=== PATIENT | female | born 1975 | race Caucasian/White ===

== ENCOUNTER 2024-07-19 23:11 | Emergency (ER) | payer OTHER, SELFPAY ==
[2024-07-19 23:14] VITALS: BP 133/84
--- NOTE | 2024-07-20 00:50 | ED.GENMED ---
History of Present Illness
General
Chief Complaint: Skin Surface Trauma
Time Seen by Provider: 07/20/24 00:09
History of Present Illness
History of Present Illness:
48-year-old female without significant past medical history presenting for laceration to right third digit. Patient reports she was washing dishes and did not realize that the dish in the sink was broken and cut the distal tip of her finger on the
dish. She had difficulty controlling the bleeding which prompted her to come to the hospital. Tetanus status is unknown. Denies numbness or tingling. Denies issues with range of motion. Denies additional acute medical complaints
Past History
Past History
ED Past Medical History: None
ED Past Surgical History: None
Social History
Tobacco: Non-smoker
Phy Exam
Physical Exam
Physical Exam:
General: Well-appearing, no clinical signs of dehydration, nontoxic and in no acute distress
HEENT: protecting airway
Neck: appears supple
CV: Normal heart rate
Resp: No accessory muscle use, no increased work of breathing
Abd: no distension
Extremities: No deformities, no swelling. Flap laceration to the distal portion of the right third digit on the palmar aspect. Bleeding controlled. Sensation intact
Neuro: alert, no focal neurologic deficit
: deferred
Rectal: deferred
Psych: Normal affect
Skin: Intact
Course
Orders/Labs/Results
Orders:
Orders
07/20/24 00:49
Tetanus/Diphth/Acelpertussis [Adacel] 0.5 ml IM .ONCE ONE
Vital Signs
Initial and Last Documented VS:
Initial Vital Signs
Temp Pulse Resp BP Pulse Ox
98.2 F 87 18 133/84 98
07/19/24 23:14 07/19/24 23:14 07/19/24 23:14 07/19/24 23:14 07/19/24 23:14
Last Documented Vital Signs
Temp Pulse Resp BP Pulse Ox
98.2 F 87 18 133/84 98
07/19/24 23:14 07/19/24 23:14 07/19/24 23:14 07/19/24 23:14 07/19/24 23:14
Procedures
Laceration Closure
Right Distal Palmar Third Finger(s):
Status of Wound: clean
Size of Wound in cm: 2
Description of Wound Edges: flap-well vascularized
Preparation: cleaned with saline
Anesthesia: 1% Lidocaine
Type of Closure: single layer closure
Skin Closure Material: 4-0 prolene
Number of sutures: 5
MDM/Problems Addressed
MDM/Problems Addressed:
48-year-old female presenting with laceration to right third digit after cutting her finger on a plate. Vital signs normal.
On exam patient well-appearing, no acute distress. Patient with subcutaneous laceration to the distal aspect of the right third digit on the palmar side. Bleeding controlled. No signs of infection. No neurovascular compromise. Wound was cleaned
and repaired with sutures. Please see procedure note. Will update tetanus. Otherwise feel stable for discharge. Return precautions discussed and patient verbalized understanding
*Critical Care Note
Total Time (30-74mins, 75-104mins- exclusive of procedures): Not Applicable
ED Attending Note
-
Portions of this chart may have been created with voice recognition software.� Occasional wrong word or��sound alike� substitutions may have occurred due to the inherent limitations of voice recognition software.
Discharge Plan
Departure
Patient Disposition: Home (Routine Discharge)
Date of Disposition: 07/20/24
Time of Disposition: 00:53
Patient with high blood pressure during this ER visit?: No
Condition: Good
Discharge Problem:
Laceration of finger of right hand
Instructions: Laceration Repair With Stitches (DC)
Prescriptions:
No Action
ketorolac 10 MG tablet
10 mg PO Q6HPRN PRN (Reason: Pain) Qty: 10 0RF
Referrals:
Stepan Meehan, [Family Provider] -
Activity Restrictions/Additional Instructions:
You were seen in the emergency department for laceration
Your finger was repaired with sutures. The sutures will need to come out in 5 to 7 days.
Please follow-up closely with your primary care physician.
Return to the emergency department for any swelling or redness to your finger with any abnormal drainage of fluid, or any development of chest pain, difficulty breathing, abdominal pain with persistent vomiting and inability to tolerate food or
liquid by mouth (concern for dehydration), weakness, headache or confusion, fever greater than 100.4, or any additional symptoms that are concerning to you.
Thank you for choosing [facility].
Interventions
Interventions:
*Risk Screen - Suicide Last Done: 07/19/24 23:12
*Neglect/Abuse Screening Last Done: 07/19/24 23:17
*ED COVID-19 Vaccine History Last Done: 07/19/24 23:17
Discharge Date and Time
Print Language: DANISH
[2024-07-20] MEDS: ADACEL 0.5 ML IM (01:03)
== END 2024-07-20 01:09 | disposition home or self-care (01) ==
LOC: EMR 23:11
PROVIDERS: EMERGENCY PHYSICIAN Student in an Organized Health Care Education/Training Program; FAMILY PHYSICIAN Family Medicine
DX: S61.212A Laceration without foreign body of right middle finger without damage to nail, initial encounter (principal); W26.8XXA Contact with other sharp object(s), not elsewhere classified, initial encounter; Y93.G1 Activity, food preparation and clean up; Z23 Encounter for immunization
CPT/HCPCS: 99282; 12001; 90471; 90715

== ENCOUNTER → 2024-09-29 13:34 | Outpatient (REF) | payer OTHER, SELFPAY | LOC: HWRAD 13:34 | PROVIDERS: ATTENDING PHYSICIAN Internal Medicine | DX: M25.512 Pain in left shoulder (principal) | CPT/HCPCS: 73030 ==

== ENCOUNTER → 2024-11-04 07:55 | Outpatient (REF) | payer OTHER, SELFPAY | LOC: MRI 3T 07:55 | PROVIDERS: ATTENDING PHYSICIAN Family Medicine | DX: M25.512 Pain in left shoulder (principal) | CPT/HCPCS: 73221 ==

== ENCOUNTER 2024-12-15 12:47 | Emergency (ER) | payer OTHER, SELFPAY ==
[2024-12-15 13:07] LABS: % Basophils 0.7 % (0-2); % Eosinophils 1.3 % (0-6); % Immature Granulocytes 0.3 % (0-0.5); % Lymphocytes 13.2 % (20.5-51.1); % Monocytes 5.2 % (1.7-9.3); % Neutrophils 79.3 % (42.2-75.2); Absolute Basophils 0.1 10^3/uL (0-0.2); Absolute Eosinophils 0.1 10^3/uL (0-0.7); Absolute Lymphocytes 1.3 10^3/uL (1.2-3.4); Absolute Monocytes 0.5 10^3/uL (0.1-0.6); Absolute Neutrophils 7.5 10^3/uL (1.4-6.5); Hematocrit 40.1 % (37.0-47.0); Hemoglobin 13.6 g/dL (12.0-16.0); Mean Corp Hgb Conc. 33.9 g/dL (33.0-37.0); Mean Corpuscular Hgb 30.4 pg (27.0-31.0); Mean Corpuscular Volume 89.7 fL (81.0-99.0); Mean Platelet Volume 8.6 fL (7.4-10.4); Nucleated Red Blood Cells % 0 %; Platelet Count 277 10^3/uL (130-400); Red Blood Cell Count 4.47 10^6/uL (4.20-5.40); Red Cell Dist. Width 13.3 % (11.5-14.5); White Blood Cell Count 9.5 10^3/uL (4.8-10.8)
[2024-12-15 13:29] LABS: HCG, Serum Qualitative Screen Negative
[2024-12-15 13:33] LABS: ALT (SGPT) 71 U/L (0-35); AST (SGOT) 96 U/L (14-36); Albumin 4.3 g/dl (3.5-5.0); Alkaline Phosphatase 54 U/L (38-126); Blood Urea Nitrogen 17 mg/dl (7-17); Calcium 9.6 mg/dl (8.4-10.2); Carbon Dioxide 26 mmol/L (22-30); Chloride 107 mmol/L (98-107); Glucose 115 mg/dl (70-99); Lipase 97 U/L (23-300); Potassium 4.1 mmol/L (3.5-5.1); Sodium 142 mmol/L (135-145); Total Protein 7.1 g/dl (6.3-8.2); eGFR > 60.00
[2024-12-15 13:35] LABS: Troponin I < 0.012 ng/ml
--- NOTE | 2024-12-15 13:48 | ED.GENMED ---
History of Present Illness
General
Chief Complaint: Abdominal Pain
Source: patient
Exam Limitations: none
Time Seen by Provider: 12/15/24 13:46
Nursing documentation reviewed up to this point in time: agreed with
History of Present Illness
History of Present Illness:
49-year-old female with no significant past medical history presents for upper abdominal pain. She states last night at 730 after dinner she developed pain across her upper abdomen worse on the right. It lasted about 30 minutes. It was 8/10.
This morning around 1030 after she ate a breakfast bowl with eggs and meat, she developed the pain again for 30 minutes, it subsided and then 15 minutes later it came back again for 20 minutes. She feels mildly nauseous and has not vomited. She
had 1 loose stool today. States pain is now 1/10.
Past History
Past History
ED Past Medical History: None
ED Past Surgical History: None
Social History
Tobacco: Non-smoker
Alcohol: Occasional
Personal:
Living: with family
Employment: Employed
Review of Systems
Review of Systems
Allergies reviewed?: Yes
All Other Systems: ROS reviewed and negative except as documented in HPI and ROS
Constitutional: Denies fever or chills
Respiratory: Denies trouble breathing
Cardiac: Denies chest pain
ABD/GI: Reports abdominal pain, nausea and diarrhea; Denies vomiting, constipated, bloody stools, black stools or anorexia
: Denies dysuria, frequency, difficulty voiding or urgency
Musculoskeletal: Reports no symptoms
Skin: Reports no symptoms
Neurological: Reports no symptoms
Phy Exam
Physical Exam
Physical Exam:
GENERAL: No acute distress. A&Ox3.
CONSTITUTIONAL: Afebrile.
EYES: clear, conjunctivae normal
ENMT: moist mucus membranes
RESPIRATORY: Regular respirations, nonlabored, lungs clear.
CARDIOVASCULAR: Regular rate and rhythm, no murmurs, no rubs.
GI: Soft, mildly tender RUQ, normal BS
MUSCULOSKELETAL: Moves with ease. Well perfused.
SKIN: Warm, dry, pink
PSYCH: Normal mood and affect. Well kept, interactive and appropriate
NEUROLOGIC: Awake, alert and oriented. No focal neurological deficits
Course
Orders/Labs/Results
Orders:
Orders
12/15/24 12:49
EKG [Electrocardiogram (*1)] Urgent
Reason for Study: Abdominal Pain
EKG- Treatment ONCE
12/15/24 12:59
Test Result ONCE
12/15/24 13:03
Complete Blood Count/With Diff Urgent
Comprehensive Metabolic Panel Urgent
HCG, Serum Qualitative Screen Urgent
Lipase Urgent
Troponin I Urgent
12/15/24 13:47
US Abdomen Complete/Upper Urgent
Comment:
Reason For Exam: upper abd pain
Abnormal Lab Results
12/15/24
13:03
Absolute Neuts (auto) 7.5 H 10^3/uL
(1.4-6.5)
Neutrophils % 79.3 H %
(42.2-75.2)
Lymphocytes % 13.2 L %
(20.5-51.1)
Glucose 115 H mg/dl
(70-99)
AST 96 H U/L
(14-36)
ALT 71 H U/L
(0-35)
12/15/24 13:03
12/15/24 13:03
Vital Signs
Initial and Last Documented VS:
Initial Vital Signs
Temp Pulse Resp Pulse Ox
97.6 F 95 20 98
12/15/24 12:54 12/15/24 12:54 12/15/24 12:54 12/15/24 12:54
Last Documented Vital Signs
Temp Pulse Resp Pulse Ox
97.6 F 95 20 98
12/15/24 12:54 12/15/24 12:54 12/15/24 12:54 12/15/24 12:54
MDM/Problems Addressed
Differential Diagnosis Includes:
Cholelithiasis, choledocholithiasis, biliary colic, GERD, atypical ACS pain
MDM/Problems Addressed:
49-year-old female with no significant past medical history presents for upper abdominal pain. She states last night at 730 after dinner she developed pain across her upper abdomen worse on the right. It lasted about 30 minutes. It was 8/10.
This morning around 1030 after she ate a breakfast bowl with eggs and meat, she developed the pain again for 30 minutes, it subsided and then 15 minutes later it came back again for 20 minutes. She feels mildly nauseous and has not vomited. She
had 1 loose stool today. States pain is now 1/10.
Afebrile, NAD
EKG NSR
2:00 PM:
CBC normal
CMP with mildly elevated AST and ALT,
HCG negative
Lipase normal
Troponin normal
4:00 p.m.
US upper abdomen: Radi
Radiology report: IMPRESSION:
No acute hepatobiliary abnormalities.
Hepatic steatosis.
Negative for cholelithiasis. Several gallbladder polyps, the largest measuring 8 mm within the neck. A follow-up outpatient ultrasound is recommended in 6-12 months for reevaluation.
Consulted Surgeon Dr. Fan. He states gallbladder polyps can cause pain but not likely
Patient remains pain-free, she states she has had GERD in the past and earlier today she did feel some discomfort similar to her previous GERD in her neck and esophagus
Will trial Pantoprazole and give GI referral.
*EKG
EKG Intrepretation Date: 12/15/24
Interpretation: normal
Heart Rate: 89
Rate: normal
Rhythm: sinus
[place]: normal axis
Interval: normal interval
QRS Pattern: normal QRS
Ischemia: no ischemia
*Critical Care Note
Total Time (30-74mins, 75-104mins- exclusive of procedures): Not Applicable
ED Attending Note
-
Portions of this chart may have been created with voice recognition software.� Occasional wrong word or��sound alike� substitutions may have occurred due to the inherent limitations of voice recognition software.
Discharge Plan
Departure
Patient Disposition: Home (Routine Discharge)
Date of Disposition: 12/15/24
Time of Disposition: 16:19
Patient with high blood pressure during this ER visit?: No
Condition: Good
Discharge Problem:
Abdominal pain
Instructions: Acid reflux and GERD in adults, Abdominal Pain
Prescriptions:
New
pantoprazole 40 mg tablet,delayed release (DR/EC)
40 mg PO DAILY Qty: 20 0RF
No Action
ketorolac 10 MG tablet
10 mg PO Q6HPRN PRN (Reason: Pain) Qty: 10 0RF
Referrals:
Ehsan Springer CRNP [Family Provider] -
Felicita Marques MD [Active] - Next open appointment
Activity Restrictions/Additional Instructions:
As we discussed, you have polyps in your gall bladder, not likely causing your pain
Recommend follow up ultrasound in 6 months just to monitor
I sent a prescription for Pantoprazole to your pharmacy, if it helps you may have acid reflux.
Call and make an appointment with the GI doctor
Interventions
Interventions:
*Risk Screen - Suicide Last Done: 12/15/24 12:54
*Nursing Disposition Last Done: 12/15/24 16:52
OZ-Zurimg-Wrhysqoloh Assessment Last Done: 12/15/24 14:59
Discharge Date and Time
Discharge Date/Time: 12/15/24 16:53
Print Language: ROMANIAN
[2024-12-15 14:59] VITALS: BMI 33.1
== END 2024-12-15 16:53 | disposition home or self-care (01) ==
LOC: EMR 12:47
PROVIDERS: Student in an Organized Health Care Education/Training Program; EMERGENCY PHYSICIAN Emergency Medicine; FAMILY PHYSICIAN Nurse Practitioner Family
DX: R10.9 Unspecified abdominal pain (principal)
CPT/HCPCS: 99284; 76700; 80053; 83690; 84484; 84703; 85025; 93005